=== PATIENT | male | born 1995 | race Caucasian/White ===

== ENCOUNTER 2017-02-27 10:03 | Emergency (ER) | payer OTHER ==
[~2017-02-27] VITALS: Ht 180.3 cm; Wt 110.9 kg
[2017-02-27 10:09] VITALS: TEMP 36.9
[2017-02-27] MEDS ORDERED: MONT1TAB3 PO (10:41)
[2017-02-27] MEDS ORDERED: MELA1TAB5 PO (10:41)
[2017-02-27] MEDS ORDERED: PRLSR20 PO (10:41)
[2017-02-27] MEDS ORDERED: MULT20CH (10:41)
[2017-02-27] MEDS ORDERED: DEXT1TAB50 PO (10:41)
[2017-02-27] MEDS ORDERED: ALBUT/IPRATROP 3MG/0.5MG NEB 3 ML VIAL INH STA (10:52)
[2017-02-27] MEDS ORDERED: PSEUDOEPHEDRINE HCL 30 MG TAB PO STA (10:52)
[2017-02-27] MEDS ORDERED: SODIUM CHLORIDE 0.9% 1000ML 1,000 ML IV STA (10:52)
[2017-02-27] MEDS ORDERED: BENZONATATE 100MG CAP PO ONE (11:00)
[2017-02-27 11:04] VITALS: Ht 180.3 cm; Wt 110.9 kg
[2017-02-27 11:09] LABS: BASO % 0.1 %; BASO ABS # 0.01 K/uL (0-0.2); COMPLETE YES; EOS % 1.1 %; HEMATOCRIT 40.6 % (42-52); IG% 0.5 %; LYMPH % 14.7 %; LYMPH ABS # 1.61 K/uL (1.2-3.4); MEAN CELL VOLUME 91.9 fL (80-100); MEAN CORPUSCULAR HEMOGLOBIN 30.8 pg (25-34); MEAN CORPUSCULAR HGB CONC 33.5 g/dl (32-36); MEAN PLATELET VOLUME 10.2 fL (7.4-10.4); MONO % 11.1 %; NEUT % 72.5 %; PLATELET COUNT 244 K/uL (130-400); RED BLOOD COUNT 4.42 M/uL (4.7-6.1); WHITE BLOOD COUNT 10.97 K/uL (4.8-10.8)
--- NOTE | 2017-02-27 11:20 | DIAGNOSTIC IMAGING REPORT ---
CHEST 2 VIEWS ROUTINE HISTORY: EVALUATE RESPIRATORY DISTRESS.DYSPNEA COMPARISON: None. FINDINGS: The lungs are clear. Cardiac silhouette is top normal in size. No pleural effusions. No pneumothorax. IMPRESSION: No acute process. Electronically signed by: Rod Amador M.D. 02/27/2017 11:19 AM Dictated Date/Time: 02/27/2017 11:18 AM
[2017-02-27 11:25] LABS: BUN/CREATININE RATIO 15.4 (10-20); CALCIUM 8.3 mg/dl (8.5-10.1); CREATININE 0.79 mg/dl (0.60-1.40)
[2017-02-27] MEDS ORDERED: BENZ100C18 PO (11:53)
[2017-02-27] MEDS ORDERED: VNTHFA/IN INH (11:53)
[2017-02-27 12:20] VITALS: BP 129/72; PULSE 100; O2SAT 100
--- NOTE | 2017-02-27 16:55 | EMERGENCY ROOM VISIT NOTE ---
ED Visit Note First contact with patient: 10:22 Chief Complaint: Chest congestion and cough. History of Present Illness: Mr. Man is a 21-year-old white male who ambulates into the ED accompanied by female friend complaining of chest congestion and cough. Patient reports symptoms started approximately 2 weeks ago with sensations of nasal congestion and chest congestion. Approximately 2-3 days after the symptoms started he reports he has developed an ongoing moderate to severe cough that has been productive of yellowish sputum. He has not identified any aggravating or alleviating factors related to the symptoms. He has not taken any medications for these symptoms prior to arrival at the hospital. Associated with the symptoms he reports he intermittently reports he has mild shortness of breath with activity that resolves at rest, intermittently he hears himself wheezing and over the last 2 days he has developed left ear pain. Currently he describes his ear pain as a throbbing sensation. He rates his discomfort 5/10. His pain is nonradiating. He has not identified any aggravating or alleviating factors related to the ear pain. He denies any associated symptoms with ear pain. Historically he reports he has discussing the ear pain because when he was younger he had ruptured his tympanic membrane and required multiple surgeries for correction. Patient denies any fevers, chills, sweats, skin eruptions, skin color changes, headache, dizziness, lightheadedness, hearing changes, ear drainage, difficulty speaking, difficulty swallowing, voice changes, neck pain/stiffness, chest pains , palpitations, orthopnea, dependent edema, previous clots, claudication, cramping, recent surgery/inactivity/extended travel, abdominal, posttussive vomiting. Review of Systems: As noted above in history of present illness. All body systems were reviewed and found to be negative as noted above. Past Medical History: As previously noted, unspecified stomach disorder. Current Medications: Medications Dose Route/Sig Max Daily Dose Days Date Category Dose Instructions Ventolin Hfa (Albuterol) 200 Puffs/51417 Mcg Aers 2 Puffs INH QID 5 02/27/17 Rx Dispense with spacer and please instruct onset up and use. Kp Melatonin (Melatonin) 3 Mg Tab 1 Tab PO HS 30 02/27/17 Reported Mucinex Dm Maximum Streng (Dextromethorphan-Guaifenesin) 1 Tab Tab 1 Tab PO BID 15 02/27/17 Reported Adult One Daily Gummies (Multiple Vitamins W/ Minerals) 1 Chw Chw 02/27/17 Reported Prilosec (Omeprazole) 20 Mg Capcr 20 Mg PO DAILY 02/27/17 Reported Singulair (Montelukast Sodium) 10 Mg Tab 1 Tab PO DAILY 90 02/27/17 Reported Allergies to Medications: Biaxin. Social History: Patient is currently employed; he lives with his sister and feels safe in his home environment; he admits to tobacco use and denies alcohol use. Physical Examination: Vital Signs: Date Time Temp Pulse Resp B/P Pulse Ox O2 Delivery O2 Flow Rate FiO2 02/27/17 12:20 100 20 129/72 100 02/27/17 11:24 97 20 144/69 98 Room Air 02/27/17 11:09 96 02/27/17 10:09 36.9 97 20 141/75 97 Room Air GENERAL: 21-year-old male in no acute distress, nontoxic-appearing, afebrile and hemodynamically stable. NEUROLOGICAL: Awake, alert and oriented to person, place and time. Answering questions appropriately and following commands. SKIN: Warm, dry and pink. No soft tissue eruptions or trauma noted. HEENT: Atraumatic and normocephalic. No erythema or tenderness over the frontal or maxillary sinuses. External ears are nontender. Auditory canals are pink and patent. Tympanic membranes were not erythematous or edematous. Trace fluid was noted behind the left tympanic membrane. PERRLA. Sclera white and conjunctiva pink. No drainage from naris. Oral cavity moist and pink. Pharynx is nonerythematous or edematous. Speech normal. No lymphadenopathy. Trachea midline. No jugular venous distention. BACK: No tenderness over the bony spine. No CVA tenderness. THORAX: Lungs sounds are clear to auscultation with decreased air movements in the bases bilaterally. Equal equal bilaterally with symmetrical chest wall. No wheezing, rales or rhonchi. No crepitus, tenderness, subcutaneous air or deformities noted. HEART: Regular rate and rhythm. No gallops, rubs or murmurs are appreciated. ABDOMEN: Flat, soft and nontender. Positive bowel sounds in all quadrants. No guarding, rigidity or organomegaly. EXTREMITIES: Moves all extremities well on command and with purpose. All distal neurovascular statuses are intact and equal bilaterally. No calf tenderness or cords. ED Course: Patient is assessed as noted above. Laboratory Testing: Test 02/27/17 11:00 Range/Units White Blood Count 10.97 4.8-10.8 K/uL Red Blood Count 4.42 4.7-6.1 M/uL Hemoglobin 13.6 14.0-18.0 g/dL Hematocrit 40.6 42-52 % Mean Corpuscular Volume 91.9 80-100 fL Mean Corpuscular Hemoglobin 30.8 25-34 pg Mean Corpuscular Hemoglobin Concent 33.5 32-36 g/dl Platelet Count 244 130-400 K/uL Mean Platelet Volume 10.2 7.4-10.4 fL Neutrophils (%) (Auto) 72.5 % Lymphocytes (%) (Auto) 14.7 % Monocytes (%) (Auto) 11.1 % Eosinophils (%) (Auto) 1.1 % Basophils (%) (Auto) 0.1 % Neutrophils # (Auto) 7.96 1.4-6.5 K/uL Lymphocytes # (Auto) 1.61 1.2-3.4 K/uL Monocytes # (Auto) 1.22 0.11-0.59 K/uL Eosinophils # (Auto) 0.12 0-0.5 K/uL Basophils # (Auto) 0.01 0-0.2 K/uL RDW Standard Deviation 43.2 36.4-46.3 fL RDW Coefficient of Variation 12.7 11.5-14.5 % Immature Granulocyte % (Auto) 0.5 % Immature Granulocyte # (Auto) 0.05 0.00-0.02 K/uL Sodium Level 140 136-145 mmol/L Potassium Level 4.0 3.5-5.1 mmol/L Chloride Level 106 98-107 mmol/L Carbon Dioxide Level 31 21-32 mmol/L Anion Gap 3.0 3-11 mmol/L Blood Urea Nitrogen 12 7-18 mg/dl Creatinine 0.79 0.60-1.40 mg/dl Est Creatinine Clear Calc Drug Dose 187.3 ml/min Estimated GFR () 148.8 Estimated GFR (Non- 128.4 BUN/Creatinine Ratio 15.4 10-20 Random Glucose 86 70-99 mg/dl Calcium Level 8.3 8.5-10.1 mg/dl Chest X-Rays: Were read by myself and the radiologist showing no acute infiltrates, effusions or pneumothorax. Normal heart silhouette and bony anatomy. I did feel there was some bronchial irritation consistent with a mild bronchitis. Patient was hydrated with normal saline and was given an albuterol/Atrovent nebulizer breathing treatment, 100 mg of Tessalon Perles and 60 mg of pseudoephedrine by mouth for his symptoms. Patient was reassessed multiple times during his stay in the emergency department. After his breathing treatment his reassessment showed significant increase in air movement and he continued to have no wheezing, rales or rhonchi. Patient's case was reviewed with Dr. Zee; we agreed on diagnostic approach, treatment, disposition and plan. Patient was educated about today's findings and instructed on his treatment plan ; he verbalizes understanding and agreement with this plan. Clinical Impression: Acute bronchitis. Decision-Making: Initially my differential diagnosis I considered pneumonia, pneumothorax, pulmonary embolism, bronchitis, otitis media, otitis externa, sinusitis and other causes. Disposition: Patient discharged home in stable condition; prior to departure he was reassessed and subjectively reported he was feeling much better. Plan: Patient was prescribed an albuterol inhaler with spacer and encouraged to use 2 puffs every 6 hours for the next 5 days and as needed for shortness of breath/ wheezing or severe coughing episode. Patient was encouraged use OTC pseudoephedrine for congestion and follow packaging dosing for instruction. Patient was prescribed 100 mg of Tessalon Perles every 8 hours as needed for cough. Patient was encouraged to avoid tobacco use. Patient was encouraged to follow-up with his PCP for recheck in 3-5 days if no better. Patient was encouraged return the ED for worsening/uncontrolled cough, coughing up blood, fevers, shortness of breath/wheezing or any new/concerning symptoms.
== END 2017-02-27 12:22 | disposition home or self-care (01) ==
LOC: C.EDB 10:08 → C.EDC 12:22
DX: J20.9 Acute bronchitis, unspecified (principal); H92.02 Otalgia, left ear; F17.200 Nicotine dependence, unspecified, uncomplicated